=== PATIENT | male | born 1950 | race Caucasian/White ===

== ENCOUNTER 2016-08-15 12:52 | Emergency (ER) | payer MEDICARE ==
[2016-08-15 13:23] LABS: #Basophils 0.1 thou/uL (0.0-0.2); #Eosinphils 0.1 thou/uL (0.0-0.7); #Monocytes 0.5 thou/uL (0.11-0.59); %Basophils 1.3 % (0.0-1.0); %Eosinophils 1.5 % (0.0-10.0); %Lymphocytes 30.3 % (21.0-51.0); %Monocytes 7.3 % (0.0-10.0); %Neutrophils 59.5 % (42.0-75.0); Hemoglobin 14.5 g/dL (14.0-18.0); Mean Corpuscular HGB CONC 34.4 g/dL (32.0-36.0); Mean Corpuscular Hemoglobin 32.2 pg (27.0-31.0); Mean Corpuscular Volume 93.8 fl (80.0-94.0); Mean Platelet Volume 7.3 fL (7.4-10.4); Platelet Count 191 thou/uL (130-400); Red Blood Cell (RBC) Count 4.49 mill/uL (4.70-6.10); White Blood Cell (WBC) Count 6.7 thou/uL (4.8-10.8)
[2016-08-15] MEDS ORDERED: Donnatal Elixir 16.2 MG/5 ML UDCUP ONE (13:26)
[2016-08-15] MEDS ORDERED: Lidocaine Viscous Sol 2% 15 ml UD Cup ONE (13:27)
[2016-08-15] MEDS ORDERED: Mag-Al Plus 1200 MG/1200 MG/120 MG/30 ML UDCUP ONE (13:27)
[2016-08-15 13:40] LABS: ALT (SGPT) 19 U/L (0-55); AST (SGOT) 21 U/L (5-34); Albumin 3.8 g/dL (3.4-4.8); Alkaline Phosphatase 83 U/L (40-150); Anion Gap 19 mmol/L (10-20); BUN (Urea Nitrogen) 20 mg/dL (8.4-25.7); Bilirubin, Total 0.5 mg/dL (0.2-1.2); Calc. Creatinine Clearance 0 mL/min (70-130); Calcium 8.5 mg/dL (7.8-10.44); Carbon Dioxide 20 mmol/L (23-31); Chloride 105 mmol/L (98-107); Estimated GFR-MDRD 63; Globulin 2.6 g/dL (2.4-3.5); Glucose 107 mg/dL (80-115); Potassium 4.2 mmol/L (3.5-5.1); Protein, Total 6.4 g/dL (5.8-8.1); Sodium 140 mmol/L (136-145)
[2016-08-15 13:42] LABS: Troponin I Less than 0.010 ng/mL (< 0.028)
--- NOTE | 2016-08-15 14:00 | RAD ---
PORTABLE AP CHEST: Date: 08/15/16 HISTORY: Chest pain. COMPARISON: 09/11/12. FINDINGS: The cardiac silhouette and pulmonary vasculature are within normal limits for the portable technique of the study. There is minimal linear atelectasis at the left lung base. The lungs are otherwise cl ear. There has been no other interval change. IMPRESSION: No acute cardiopulmonary process. POS: [facility]
--- NOTE | 2016-08-15 14:29 | PICIS ---
[facility] EMERGENCY RECORD TRIAGE (12:58 MDEB) PATIENT: NAME: Cachorro Moore Iii, AGE: 66, GENDER: male, : Mon1950, TIME OF GREET: MonAug 15, 2016 12:52, PREFERRED LANGUAGE: Romanian, RACE: WHITE, ETHNICITY: Not or , ECODE BILLING MAP: [facility], SSN: [id number], Zip Code: [address], KG WEIGHT: 117.93, PHONE: , , , PERSON ID: [id number], PCP: MD Turner Grover. (12:58 MDEB) TRIAGE NOTES: CHEST PAIN - MIDSTERNAL OFF ET ON FOR 2 DAYS. (12:58 MDEB) COMPLAINT: CHEST PAINS. (12:58 MDEB) ADMISSION: URGENCY: 3 Urgent, ADMISSION SOURCE: Home, TRANSPORT: Walk-in, BED: TRIAGE. (12:58 MDEB) PAIN: Notes: NO PAIN AT THIS TIME. (12:58 MDEB) TRIAGE SCREENING: Patient denies suicidal ideation, Patient denies presence of domestic violence. (12:58 MDEB) PROVIDERS: TRIAGE NURSE: Ivy Chandler RN. (12:58 MDEB) VITAL SIGNS: BP 160/80, Pulse 66, Resp 15, Temp 97.3, (Tympanic), Pain 6, O2 Sat 97, on Room Air, Time 08/15/2016 12:57. (12:57 MDEB) KNOWN ALLERGIES No Known Allergies CURRENT MEDICATIONS No recorded medications VITAL SIGNS VITAL SIGNS: BP: 160/80, Pulse: 66, Resp: 15, Temp: 97.3 (Tympanic), Pain: 6, O2 sat: 97 on Room Air, Time: 08/15/2016 12:57. (12:57 MDEB) BP: 138/67, Pulse: 61, Resp: 20, Pain: 0, O2 sat: 97 on RA, Time: 08/15/2016 14:39. (14:39 MDEB) NURSING ASSESSMENT: CARDIOVASCULAR (12:58 MDEB) CONSTITUTIONAL: Patient arrives ambulatory, Gait steady, History obtained from patient, Patient appears comfortable, Patient cooperative, Patient alert, Oriented to person, place and time, Skin warm, Skin dry, Skin normal in color, Mucous membranes pink, Mucous membranes moist, Patient is well-groomed, Patient complains of MIDSTERNAL CHEST PAIN, PT REPORTS PAIN OFF ET ON FOR 2 DAYS. RADIATION TODAY OF PAIN TO L SIDE NECK ET L UNDERARM. PAIN: Patient rates pain as 0 out of 10. CARDIOVASCULAR: Cardiovascular assessment findings include heart rate normal, Heart rhythm, sinus arrhythmia, Heart sounds normal, S1, S2. RESPIRATORY/CHEST: Breath sounds clear, Respiratory assessment findings include respiratory effort easy, Respirations regular, Conversing normally, Neck and chest exam findings include trachea midline, Chest expansion equal, Chest movement symmetrical. NOTES: Emotional support needed and given, Patient tolerated &a-1R&a+25V*p+0X*w1813H*c202B*c15G*c2P*p-0X&a-25V&a+1R Name: Cachorro Moore Iii : 1950 M66 MedRec: [id number] AcctNum: [id number] Prepared: MonAug 15, 2016 14:51 by Interface Page 1 of 8 pMD [facility] EMERGENCY RECORD procedure well. SAFETY: Side rails up, Cart/Stretcher in lowest position, Family at bedside, Call light within reach, Hospital ID band on. NURSING PROCEDURE: FORMS DESIGNER (12:58 MDSAGE) PATIENT IDENTIFIER: Patient actively involved in identification process, Patient's identity verified by patient stating name, Patient's identity verified by hospital ID bracelet. FORMS DESIGNER: Cardiac monitoring indicated for complaint of chest pain, Patient placed on outsole handler, Heart rate: 66, showing sinus arrhythmia, without ectopy, Patient placed on non-invasive blood pressure monitor, Patient placed on continuous pulse oximetry. FOLLOW-UP: After procedure, alarms set and on, After procedure, patient tolerating monitoring. NOTES: Emotional support needed and given, Patient tolerated procedure well. SAFETY: Side rails up, Cart/Stretcher in lowest position, Family at bedside, Call light within reach, Hospital ID band on. NURSING PROCEDURE: DISCHARGE NOTE (14:39 MDEB) DISCHARGE: Patient discharged to home, ambulating without assistance, family driving, accompanied by //partner, Summary of Care printed/ provided, Patient requested and was provided an electronic copy of Discharge Instructions, Transition record given to patient, Discharge instructions given to patient, Discharge instructions given to spouse, Simple or moderate discharge teaching performed, preventing acid reflux, Prescriptions given and instructions on side effects given, Above person(s) verbalized understanding of discharge instructions and follow-up care, Patient treated and evaluated by physician. BELONGINGS: Belongings remain with patient, Valuables remain with patient. NOTES: Emotional support needed and given, Patient tolerated procedure well. VITAL SIGNS: BP: 138, / 67, Pulse: 61, Resp: 20, Pain: 0, O2 sat: 97, on: RA. NURSING PROCEDURE: EKG CHART (13:03 LESLIE) PATIENT IDENTIFIER: Patient actively involved in identification process, Patient's identity verified by patient stating name, Patient's identity verified by hospital ID bracelet. EKG: EKG indicated for complaint of chest pain, 12 lead EKG performed on the left chest. FOLLOW-UP: After procedure, EKG for interpretation given to Dr. PARRY. NOTES: Emotional support needed and given, Patient tolerated procedure well. SAFETY: Side rails up, Cart/Stretcher in lowest position, Family at bedside, Call light within reach, Hospital ID band on. &a-1R&a+25V*p+0X*t5972N*c202B*c15G*c2P*p-0X&a-25V&a+1R Name: Cachorro Moore Iii : 1950 M66 MedRec: [id number] AcctNum: [id number] Prepared: MonAug 15, 2016 14:51 by Interface Page 2 of 8 pMD [facility] EMERGENCY RECORD NURSING PROCEDURE: IV (13:05 LESLIE) PATIENT IDENITIFIER: Patient actively involved in identification process, Patient's identity verified by patient stating name, Patient's identity verified by hospital ID bracelet. IV SITE 1: IV therapy indicated for hydration, IV therapy indicated for medication administration, IV established, to the left forearm, using a 20 gauge catheter, in one attempt, IV site prepped with ALCOHOL, Saline lock established, Flushed with normal saline (mls): 10, Labs drawn at time of placement, labeled in the presence of the patient and sent to lab. FOLLOW-UP SITE 1: After procedure, sterile transparent dressing applied. NOTES: Emotional support needed and given, Patient tolerated procedure well. SAFETY: Side rails up, Cart/Stretcher in lowest position, Family at bedside, Call light within reach, Hospital ID band on. ORDER DETAILS Order Name: FORMS DESIGNER ED, Status: Done, Time: 13:16 08/15/2016, User: LESLIE, - Ordered for: MD Parry Stanley, - Entered by: MD Parry Stanley - Mon Aug 15, 2016 13:13, - Quantity: 1, Order Name: Cardiac Profile w/CKMB & Troponin - I, Status: Active, Time: 13:13 08/15/2016, User: ANASTACIO, - Ordered for: MD Parry Stanley, - Entered by: MD Parry Stanley - Mon Aug 15, 2016 13:13, - Quantity: 1, Order Name: CBC with Differential, Status: Active, Time: 13:13 08/15/2016, User: ANASTACIO, - Ordered for: MD Parry Stanley, - Entered by: MD Parry Stanley - Mon Aug 15, 2016 13:13, - Quantity: 1, Order Name: Comprehensive Metabolic Panel, Status: Active, Time: 13:13 08/15/2016, User: ANASTACIO, - Ordered for: MD Parry Stanley, - Entered by: MD Parry Stanley - Mon Aug 15, 2016 13:13, - Quantity: 1, Order Name: EKG 12 Lead in Emergency Room, Status: Active, Time: 13:13 08/15/2016, User: ANASTACIO, - Ordered for: MD Parry Stanley, - Entered by: MD Parry Stanley - Mon Aug 15, 2016 13:13, - Quantity: 1, Order Name: SALINE LOCK, Status: Done, Time: 13:17 08/15/2016, User: LESLIE, - Ordered for: MD Parry Stanley, - Entered by: MD Parry Stanley - Mon Aug 15, 2016 13:13, - Quantity: 1, &a-1R&a+25V*p+0X*h0159L*c202B*c15G*c2P*p-0X&a-25V&a+1R Name: Oscar Cachorro Farmer : 1950 M66 MedRec: [id number] AcctNum: [id number] Prepared: MonAug 15, 2016 14:51 by Interface Page 3 of 8 pMD [facility] EMERGENCY RECORD Order Name: XR Chest 1 View Portable, Status: Active, Time: 13:13 08/15/2016, User: ANASTACIO, - Ordered for: MD Parry Stanley, - Entered by: MD Parry Stanley - MonAug 15, 2016 13:13, - Quantity: 1. MEDICATION ADMINISTRATION SUMMARY Drug Name: aspirin oral, Dose Ordered: 1 tab(s), Route: Oral, Status: Given, Time: 13:31 08/15/2016, Drug Name: GI COCKTAIL, Dose Ordered: 40 mL, Route: Oral, Status: Given, Time: 13:30 08/15/2016, Detailed record available in Medication Service section. MEDICATION SERVICE aspirin oral: Order: aspirin oral (aspirin) - Dose: 1 tab(s) : Oral Schedule: Now Ordered by: Cristian Parry MD Entered by: Cristian Parry MD MonAug 15, 2016 13:24 Documented as given by: Ivy Chandler RN MonAug 15, 2016 13:31 Patient, Medication, Dose, Route and Time verified prior to administration. Amount given: 324 MG, Site: Medication administered P.O., Correct patient, time, route, dose and medication confirmed prior to administration, Patient advised of actions and side-effects prior to administration, Allergies confirmed and medications reviewed prior to administration, Patient in position of comfort, Side rails up, Cart in lowest position, Family at bedside. GI COCKTAIL: Order: GI COCKTAIL - Dose: 40 mL : Oral Lidocaine Viscous (lidocaine HCl) [10 mL] MAG-AL (magnesium hydroxide/aluminum hydroxide) [30 mL] Ordered by: Cristian Parry MD Entered by: Cristian Parry MD MonAug 15, 2016 13:25 Documented as given by: Ivy Chandler RN MonAug 15, 2016 13:30 Patient, Medication, Dose, Route and Time verified prior to administration. Amount given: 40 ML, Site: Medication administered P.O., Correct patient, time, route, dose and medication confirmed prior to administration, Patient advised of actions and side-effects prior to administration, Allergies confirmed and medications reviewed prior to administration, Patient in position of comfort, Side rails up, Cart in lowest position, Family at bedside. HPI CHEST PAIN (13:09 ANASTACIO) CHIEF COMPLAINT: Patient presents for evaluation of chest pain, that was present but has now resolved. HISTORIAN: History provided by patient, History provided by patient's spouse, chest pain for 2 to 3 days, resolved when layed down in exam room. &a-1R&a+25V*p+0X*h4856U*c202B*c15G*c2P*p-0X&a-25V&a+1R Name: Cachorro Moore Iii : 1950 M66 MedRec: [id number] AcctNum: [id number] Prepared: MonAug 15, 2016 14:51 by Interface Page 4 of 8 pMD [facility] EMERGENCY RECORD LOCATION: center of chest; some under the arms. QUALITY: Pain is dull in nature. SEVERITY: Maximum severity of symptoms moderate, Currently there are no symptoms. ROS (13:10 SHAN) CONSTITUTIONAL: Negative constitutional review of systems, Historian denies chills, denies fever. EYES: Negative eye review of systems. ENT: Negative ears, nose, throat review of systems. CARDIOVASCULAR: Negative cardiovascular review of systems, Historian denies chest pain, denies palpitations. RESPIRATORY: Negative respiratory review of systems, Historian denies cough, denies shortness of breath. GI: Negative gastrointestinal review of systems, Historian denies abdominal pain, denies constipation, denies diarrhea. MUSCULOSKELETAL: Negative musculoskeletal review of systems. SKIN: Negative skin review of systems. NEUROLOGIC: Negative neurologic review of systems. ENDOCRINE: Negative endocrine review of systems. HEMO/LYMPHATIC: Normal hematologic/lymphatic system review. PSYCHIATRIC: Negative psychiatric review of systems. NOTES: All other ROS is negative except as listed in HPI. PAST MEDICAL HISTORY MEDICAL HISTORY: Past medical history includes cardiac history, coronary artery disease, Treated with stent placement, Number of stents: 1. (12:58 MDEB) NOTES: I have reviewed and agree with the PMH/PSxH/FamHx/SocHx obtained by the nurse. (13:10 SHAN) PHYSICAL EXAM (13:10 SHAN) CONSTITUTIONAL: Vital signs reviewed, Patient appears non toxic, Patient alert and oriented to person, place and time, Pt is in no apparent distress. HEAD: Head exam included findings of head atraumatic, normocephalic. EYES: Eye exam included findings of eyelids normal to inspection, Pupils equally round and reactive to light, Extraocular muscles intact. ENT: ENT exam normal, Nose exam normal, no nasal deformity, no bleeding from nares, Pharynx exam normal, Mouth exam normal, mucous membranes moist. NECK: Neck exam included findings of normal range of motion, Trachea midline. RESPIRATORY CHEST: Respiratory and chest exam normal, Breath sounds clear, No wheezing, No rales, Chest exam included findings of chest movement symmetrical, Chest expansion equal. CARDIOVASCULAR: Cardiovascular assessment normal, Cardiovascular &a-1R&a+25V*p+0X*t0878L*c202B*c15G*c2P*p-0X&a-25V&a+1R Name: Cachorro Moore Iii : 1950 M66 MedRec: [id number] AcctNum: [id number] Prepared: MonAug 15, 2016 14:51 by Interface Page 5 of 8 pMD [facility] EMERGENCY RECORD exam included findings of heart rate regular rate and rhythm, Heart sounds normal. ABDOMEN MALE: Abdominal exam included findings of abdomen nontender, Bowel sounds normal, no mass, no pulsatile masses, no peritoneal signs, no rigidity, no guarding, no rebound. BACK: Back exam included findings of normal inspection, range of motion normal, no costovertebral angle tenderness. UPPER EXTREMITY: Upper extremity exam included findings of inspection normal, Range of motion normal. LOWER EXTREMITY: Lower extremity exam included findings of inspection normal, Range of motion normal. NEURO: Neuro exam findings include patient oriented to person, place and time, Speech normal, no focal motor deficits, no focal sensory deficits. SKIN: Skin exam included findings of skin warm, dry, and normal in color. LYMPHATIC: Lymphatic exam normal. PSYCHIATRIC: Psychiatric exam included findings of patient oriented to person place and time, Normal affect. EVENTS TRANSFER: Triage to Emergency Triage. (MonAug 15, 2016 12:58 MDEB) Emergency Triage to Main ED -01. (12:58 MDEB) Removed from Emergency Main ED -01. (14:42 MDEB) DOCTOR NOTES TEXT: Adult male with hx of stent and ballooning in 2003; had chest pain and heart cath 3 years ago with dx of esophagitis. Developed chest pain about 3 days ago. Resolved as layed down in er bed. Apparently not exhertional; had done some fairly strenuous activity per but no exacerbation apparent. (13:11 ANASTACIO) Cardiac enzymes good, ekg good, gets treadmill q 6 months and these have been good. (14:06 ANASTACIO) PROBLEM LIST No recorded problems DIAGNOSIS (14:12 ANASTACIO) FINAL: PRIMARY: Reflux esophagitis. DISPOSITION PATIENT: Disposition Type: Discharge, Disposition: *Discharge Home. (14:12 ANASTACIO) Patient left the department. (14:42 LESLIE) INSTRUCTION (14:18 ANASTACIO) DISCHARGE: ESOPHAGEAL REFLUX (ADULT). FOLLOWUP: MD Johnny, [place], [facility], [address] [place] [address], . &a-1R&a+25V*p+0X*s9011Y*c202B*c15G*c2P*p-0X&a-25V&a+1R Name: Cachorro Moore Iii : 1950 M66 MedRec: [id number] AcctNum: [id number] Prepared: MonAug 15, 2016 14:51 by Interface Page 6 of 8 pMD [facility] EMERGENCY RECORD SPECIAL: 1. protonix one a day to reduce acid 2. work on the weight loss 3. still let cardiology know of this event in case they wish any other evaluations 4. return if any problems. PRESCRIPTION (14:15 ANASTACIO) Protonix oral: TABLET, DELAYED RELEASE (ENTERIC COATED) : 40 mg : ORAL : Quantity: 1 Unit: tab(s) Route: ORAL Schedule: once a day Dispense: 30 Unit: tab(s) May substitute. Refills: 3 . NOTES: No Refills. IMAGING *EKG: Image captured from scanner. (13:18 LESLIE) *DISCHARGE INSTRUCTIONS RECEIPT: Image captured from scanner. (14:41 LESLIE) *SUPPLY CHARGE SHEET: Image captured from scanner. (14:41 LESLIE) ADMIN (14:19 ANASTACIO) DIGITAL SIGNATURE: MD Brinda, Cristian. RESULTS LABORATORY: CBC with Differential Collection DT: MonAug 15, 2016 13:18, White Blood Cell (WBC) Count 6.7 thou/uL, Range (4.8-10.8), *Red Blood Cell (RBC) Count 4.49 - L mill/uL, Range (4.70-6.10), Hemoglobin 14.5 g/dL, Range (14.0-18.0), Hematocrit 42.1 %, Range (42.0-52.0), Mean Corpuscular Volume 93.8 fl, Range (80.0-94.0), *Mean Corpuscular Hemoglobin 32.2 - H pg, Range (27.0-31.0), Mean Corpuscular HGB CONC 34.4 g/dL, Range (32.0-36.0), RBC Distribution Width 12.0 %, Range (11.5-14.5), Platelet Count 191 thou/uL, Range (130-400), *Mean Platelet Volume 7.3 - L fL, Range (7.4-10.4), %Neutrophils 59.5 %, Range (42.0-75.0), %Lymphocytes 30.3 %, Range (21.0-51.0), %Monocytes 7.3 %, Range (0.0-10.0), %Eosinophils 1.5 %, Range (0.0-10.0), *%Basophils 1.3 - H %, Range (0.0-1.0), #Neutrophils 4.0 thou/uL, Range (1.40-6.50), #Lymphocytes 2.0 thou/uL, Range (1.20-3.40), #Monocytes 0.5 thou/uL, Range (0.11-0.59), #Eosinphils 0.1 thou/uL, Range (0.0-0.7), #Basophils 0.1 thou/uL, Range (0.0-0.2). (13:35 [facility]) Comprehensive Metabolic Panel Collection DT: MonAug 15, 2016 13:18, Sodium 140 mmol/L, Range (136-145), Potassium 4.2 mmol/L, Range (3.5-5.1), Chloride 105 mmol/L, Range (98-107), *Carbon Dioxide 20 - L mmol/L, Range (23-31), &a-1R&a+25V*p+0X*m3319U*c202B*c15G*c2P*p-0X&a-25V&a+1R Name: Cachorro Moore Iii : 1950 M66 MedRec: [id number] AcctNum: [id number] Prepared: MonAug 15, 2016 14:51 by Interface Page 7 of 8 pMD [facility] EMERGENCY RECORD Anion Gap 19 mmol/L, Range (10-20), BUN (Urea Nitrogen) 20 mg/dL, Range (8.4-25.7), Creatinine 1.16 mg/dL, Range (0.7-1.3), Estimated GFR-MDRD 63 , Reference Range for Estimated GFR: Greater than 90, mL/min/1.73 m2 NOTE: The MDRD equation has not been validated for use, with the elderly (over 70 years of age), women, patients with, serious comorbid condition or persons with extremes of body size, muscle, mass, or nutritional status. , Glucose 107 mg/dL, Range (80-115), Calcium 8.5 mg/dL, Range (7.8-10.44), Bilirubin, Total 0.5 mg/dL, Range (0.2-1.2), Protein, Total 6.4 g/dL, Range (5.8-8.1), NOTE: Plasma values are generally 0.3 to 0.5 g/dL higher than serum values, due to the presence of fibrinogen. , Albumin 3.8 g/dL, Range (3.4-4.8), Globulin 2.6 g/dL, Range (2.4-3.5), Alb/Glob Ratio 1.5 g/dL, Range (1.2-2.2), Alkaline Phosphatase 83 U/L, Range (40-150), AST (SGOT) 21 U/L, Range (5-34), ALT (SGPT) 19 U/L, Range (0-55). (13:44 SHAN) Cardiac Profile w/CKMB & TropI Collection DT: MonAug 15, 2016 13:18, CKMB 1.0 ng/mL, Range (0-6.6), Troponin I Less than 0.010 ng/mL, Range (< 0.028), Reference Range , 0.00 - 0.028 ng/mL Negative 0.029 - 0.29 ng/mL , Indeterminate Greater or Equal to 0.3 ng/mL Strongly suggests VT , . (13:46 LESLIE) Nguyen: LESLIE=CHRIS Chandler, Ivy CHAVES=MD Brinda, Cristian &a-1R&a+25V*p+0X*c8200B*c202B*c15G*c2P*p-0X&a-25V&a+1R Name: Cachorro Moore Iii : 1950 M66 MedRec: [id number] AcctNum: [id number] Prepared: Tobi Aug 15, 2016 14:51 by Interface Page 8 of 8 pMD MTDD
== END 2016-08-15 14:39 | disposition home or self-care (01) ==
LOC: MADERS 12:52
DX: K21.9 Gastro-esophageal reflux disease without esophagitis (principal); I25.10 Atherosclerotic heart disease of native coronary artery without angina pectoris
CPT/HCPCS: 71010; 80053; 82553; 84484; 85025; 93005